=== PATIENT | male | born 1965 | race Caucasian/White ===

== ENCOUNTER 2016-04-03 08:39 | Emergency (ER) | payer OTHER ==
[2016-04-03 09:48] VITALS: BP 137/97
[2016-04-03] MEDS ORDERED: PREDNISONE 20 MG TABLET PO ONE (09:57)
[2016-04-03] MEDS ORDERED: ALBUTEROL SULFATE HFA (90 MCG/PUFF) 8 GM MDI (1 MDI/ER DISP) IH ONE (09:57)
[2016-04-03] MEDS ORDERED: AZITHROMYCIN 250 MG TABLET PO ONE (09:58)
--- NOTE | 2016-04-03 10:08 | ER Document Report ---
ED General - General Chief Complaint: Cold Symptoms Stated Complaint: SORE THROAT - HPI Patient complains to provider of: cough congestion sore throat Notes: Patient is a smoker coming in for cough congestion sore throat productive cough ongoing for the last 2 weeks no relief with [id number] symptoms. Patient did not get a flu shot this year. Patient also complains of sore throat. No recent travel no recent antibiotics. Patient otherwise in no obvious distress upon my evaluation. - Related Data Allergies/Adverse Reactions: No Known Allergies Allergy (Verified 04/03/16 09:47) Past Medical History - Social History Smoking Status: Unknown if Ever Smoked Family History: Reviewed & Not Pertinent - Past Medical History Cardiac Medical History: Denies: Hx Hypertension Endocrine Medical History: Reports: Hx Diabetes Mellitus Type 2 Renal/ Medical History: Reports: Hx Kidney Stones Past Surgical History: Reports: Hx Genitourinary Surgery - lithotripsy - Immunizations Hx Diphtheria, Pertussis, Tetanus Vaccination: Yes Review of Systems - Review of Systems Constitutional: No symptoms reported EENT: Sinus pressure, Throat pain Cardiovascular: No symptoms reported Respiratory: Cough, Short of breath Gastrointestinal: No symptoms reported Genitourinary: No symptoms reported Male Genitourinary: No symptoms reported Musculoskeletal: No symptoms reported Skin: No symptoms reported Hematologic/Lymphatic: No symptoms reported Neurological/Psychological: No symptoms reported -: Yes All other systems reviewed and negative Physical Exam - Vital signs Vitals: Temp Resp BP Pulse Ox 98.7 F 20 137/97 H 100 04/03/16 09:44 04/03/16 09:44 04/03/16 09:44 04/03/16 09:44 Interpretation: Normal - General General appearance: Appears well, Alert - HEENT Head: Normocephalic, Atraumatic Eyes: Normal Conjunctiva: Normal Cornea: Normal Extraocular movements intact: Yes Eyelashes: Normal Pupils: PERRL Ears: Normal External canal: Normal Tympanic membrane: Normal Sinus: Normal Nasal: Normal Mouth/Lips: Normal Mucous membranes: Normal Pharynx: Normal Neck: Normal - Respiratory Respiratory status: No respiratory distress Chest status: Nontender Breath sounds: Wheezing Chest palpation: Normal - Cardiovascular Rhythm: Regular Heart sounds: Normal auscultation Murmur: No - Abdominal Inspection: Normal Distension: No distension Bowel sounds: Normal Tenderness: Nontender Organomegaly: No organomegaly - Back Back: Normal, Nontender - Extremities General upper extremity: Normal inspection, Nontender, Normal color, Normal ROM , Normal temperature General lower extremity: Normal inspection, Nontender, Normal color, Normal ROM , Normal temperature, Normal weight bearing. No: Julien's sign - Neurological Neuro grossly intact: Yes Cognition: Normal Orientation: AAOx4 [place] Coma Scale Eye Opening: Spontaneous [place] Coma Scale Verbal: Oriented Kd Coma Scale Motor: Obeys Commands [place] Coma Scale Total: 15 Speech: Normal Motor strength normal: LUE, RUE, LLE, RLE Sensory: Normal - Psychological Associated symptoms: Normal affect, Normal mood - Skin Skin Temperature: Warm Skin Moisture: Dry Skin Color: Normal Course - Re-evaluation Re-evalutation: 04/03/16 15:26 Patient coming in for evaluation of off feeling unwell. More likely patient has developed a bronchitis. Patient will be given steroids bronchodilators and Z-Onesimo. Patient herself smoking patient discharged home - Vital Signs Vital signs: Temp Pulse Resp BP Pulse Ox 98.7 F 20 137/97 H 100 04/03/16 09:44 04/03/16 09:44 04/03/16 09:44 04/03/16 09:44 Discharge - Discharge Clinical Impression: Viral pharyngitis, Bronchitis, Tobacco use Condition: Good Disposition: HOME, SELF-CARE Instructions: Bronchitis With Bronchospasm (Wheezing) ([facility]), Sore Throat ([facility]) Additional Instructions: Take medication as prescribed. Please be sure that you drinking plenty of fluids to stay hydrated. Please use inhaler that we gave you here in ER 2 puffs every 4 hours for the next 5 days. Prescriptions: Azithromycin [Zithromax 250 mg Tablet] 500 mg PO DAILY #6 tab Prednisone [Deltasone 20 mg Tablet] 3 tab PO DAILY 5 Days Forms: Smoking Cessation Education, Return to Work Referrals: SUZANNE CAPONE MD [Primary Care Provider] - Follow up as needed
== END 2016-04-03 10:30 | disposition home or self-care (01) ==
LOC: ER 08:39
DX: J02.9 Acute pharyngitis, unspecified (principal); J40 Bronchitis, not specified as acute or chronic; E11.9 Type 2 diabetes mellitus without complications; Z87.442 Personal history of urinary calculi; Z72.0 Tobacco use
CPT/HCPCS: 99283; 87070; 87880; 87804; J7512; J3490

== ENCOUNTER 2016-04-12 10:49 | Emergency (ER) | payer OTHER ==
[2016-04-12 10:57] VITALS: BP 151/85
--- NOTE | 2016-04-12 11:02 | ER Document Report ---
ED Medical Screen (RME) - General Stated Complaint: SORE THROAT Time seen by provider: 10:58 Notes: patient states he was seen last week for swollen glands in his neck. Strep test and flu tests were both negative. Patient states he has been taking over- the-counter mucinex and the steroids that were prescribed for him. Still having some swelling to the right side of his neck. Also complains of tension headache and posterior neck pain. Denies fever. I have greeted and performed a rapid initial assessment of this patient. A comprehensive ED assessment and evaluation of the patient, analysis of test results and completion of the medical decision making process will be conducted by additional ED providers. - Related Data Allergies/Adverse Reactions: No Known Allergies Allergy (Verified 04/03/16 09:47) Past Medical History - Past Medical History Cardiac Medical History: Denies: Hx Hypertension Endocrine Medical History: Reports: Hx Diabetes Mellitus Type 2 Renal/ Medical History: Reports: Hx Kidney Stones Past Surgical History: Reports: Hx Genitourinary Surgery - lithotripsy - Immunizations Hx Diphtheria, Pertussis, Tetanus Vaccination: Yes Physical Exam - Vital signs Vitals: Temp Pulse Resp BP Pulse Ox 98.8 F 90 20 151/85 H 98 04/12/16 10:55 04/12/16 10:55 04/12/16 10:55 04/12/16 10:55 04/12/16 10:55 - HEENT Pharynx: Erythema Neck: Normal Course - Vital Signs Vital signs: Temp Pulse Resp BP Pulse Ox 98.8 F 90 20 151/85 H 98 04/12/16 10:55 04/12/16 10:55 04/12/16 10:55 04/12/16 10:55 04/12/16 10:55
--- NOTE | 2016-04-12 11:07 | ER Document Report ---
ED ENT - General Chief Complaint: Sore Throat Stated Complaint: SORE THROAT Notes: The patient is a 50-year-old male, current smoker, presents with 2 weeks of sore throat and enlarged lymph node on the right side of his neck. He was seen in the ER a week ago and had negative strep and flu test. He was given azithromycin and prednisone for bronchitis. He had very mild relief of his symptoms, but they're still present. He is trying Mucinex and Sudafed without much relief. He denies difficulty swallowing, neck stiffness, fevers, weight loss, night sweats, rash, nausea or vomiting. TRAVEL OUTSIDE OF THE [place] IN LAST 30 DAYS: No - Related Data Allergies/Adverse Reactions: No Known Allergies Allergy (Verified 04/12/16 10:58) Past Medical History - General Information source: Patient - Social History Smoking Status: Current Every Day Smoker Chew tobacco use (# tins/day): No Frequency of alcohol use: None Drug Abuse: None Family History: Reviewed & Not Pertinent Patient has suicidal ideation: No Patient has homicidal ideation: No - Past Medical History Cardiac Medical History: Denies: Hx Hypertension Endocrine Medical History: Reports: Hx Diabetes Mellitus Type 2 Renal/ Medical History: Reports: Hx Kidney Stones. Denies: Hx Peritoneal Dialysis Past Surgical History: Reports: Hx Genitourinary Surgery - lithotripsy - Immunizations Hx Diphtheria, Pertussis, Tetanus Vaccination: Yes Review of Systems - Review of Systems Notes: REVIEW OF SYSTEMS: CONSTITUTIONAL: -fevers, -chills EENT: -eye pain, -difficulty swallowing, -nasal congestion, +sore throat CARDIOVASCULAR:-chest pain, -syncope. RESPIRATORY: -cough, -SOB GASTROINTESTINAL: -abdominal pain, - nausea, -vomiting, -diarrhea GENITOURINARY: -dysuria, -hematuria MUSCULOSKELETAL: -back pain, -neck pain SKIN: -rash or skin lesions. HEMATOLOGIC: -easy bruising or bleeding. LYMPHATIC: +swollen, enlarged glands. NEUROLOGICAL: -altered mental status or loss of consciousness, -headache, - neurologic symptoms PSYCHIATRIC: -anxiety, -depression. ALL OTHER SYSTEMS REVIEWED AND NEGATIVE. Physical Exam - Vital signs Vitals: Temp Pulse Resp BP Pulse Ox 98.8 F 90 20 151/85 H 98 04/12/16 10:55 04/12/16 10:55 04/12/16 10:55 04/12/16 10:55 04/12/16 10:55 - Notes Notes: PHYSICAL EXAMINATION: GENERAL: Well-appearing, well-nourished and in no acute distress. HEAD: Atraumatic, normocephalic. EYES: Pupils equal round and reactive to light, extraocular movements intact, sclera anicteric, conjunctiva are normal. ENT: nares patent, oropharynx clear without exudates. Moist mucous membranes. No stridor. NECK: Tender enlarged lymph nose in right anterior neck, Normal range of motion LUNGS: Breath sounds clear to auscultation bilaterally and equal. No wheezes rales or rhonchi. HEART: Regular rate and rhythm without murmurs ABDOMEN: Soft, nontender, normoactive bowel sounds. No guarding, no rebound. No masses appreciated. EXTREMITIES: Normal range of motion, no pitting or edema. No cyanosis. NEUROLOGICAL: Cranial nerves grossly intact. Normal speech, normal gait. Normal sensory, motor, and reflex exams. PSYCH: Normal mood, normal affect. SKIN: Warm, Dry, normal turgor, no rashes or lesions noted. Course - Re-evaluation Re-evalutation: Patient has a modified Centor score of -1. No evidence of epiglottitis, RPA or BOILER WATER TESTER at this time. He already tested negative for flu and strep at his last visit. With poor dentition and enlarged lymph node, will begin clindamycin to help with the lymphadenopathy and follow up at ENT for possible biopsy because of his smoking history. Spoke to patient and about this possibility and they understand. - Vital Signs Vital signs: Temp Pulse Resp BP Pulse Ox 98.8 F 90 20 151/85 H 98 04/12/16 10:55 04/12/16 10:55 04/12/16 10:55 04/12/16 10:55 04/12/16 10:55 Discharge - Discharge Clinical Impression: Lymphadenopathy of head and neck region Pharyngitis Qualifiers: Pharyngitis/tonsillitis etiology: unspecified etiology Qualified Code(s): J02.9 - Acute pharyngitis, unspecified Condition: Stable Disposition: HOME, SELF-CARE Additional Instructions: Lymphadenopathy You have enlargement of lymph glands, called lymphadenopathy. Lymph glands filter tissue fluids. They help to fight infection. Most of the time, enlarged lymph glands are not serious. Lymph glands may react to a viral or bacterial infection by becoming swollen and painful. When the infection goes away, the glands shrink. Sometimes a lymph gland will remain enlarged for a long time after an infection. Occasionally, a lymph gland may be overwhelmed by infection and form an abscess. If an enlarged lymph gland has signs that are suspicious for tumor, the doctor will recommend a biopsy. A suspicious gland usually is NOT painful, grows very slowly, and is rock-hard to touch. See the doctor or return if there is increasing swelling and redness, high fever, difficulty breathing, or any other change for the worse. Prescriptions: Clindamycin HCl 300 mg PO Q8H #21 capsule Referrals: ENT [Provider Group] - Follow up as needed LEONCIO CARDOZO MD [ACTIVE STAFF] - Follow up as needed
== END 2016-04-12 11:45 | disposition home or self-care (01) ==
LOC: ER 10:49
DX: R59.1 Generalized enlarged lymph nodes (principal); J02.9 Acute pharyngitis, unspecified; R59.9 Enlarged lymph nodes, unspecified; F17.210 Nicotine dependence, cigarettes, uncomplicated
CPT/HCPCS: 99282

== ENCOUNTER → 2016-06-04 | Outpatient (CLI) | payer OTHER ==
[2016-06-04 09:36] LABS: ABSOLUTE BASOPHILS # (AUTO) 0.1 10^3/uL (0.0-0.2); ABSOLUTE EOSINOPHILS # (AUTO) 0.5 10^3/uL (0.0-0.6); ABSOLUTE LYMPHOCYTES (AUTO) 3.4 10^3/uL (0.5-4.7); ABSOLUTE MONOCYTES (AUTO) 0.8 10^3/uL (0.1-1.4); ABSOLUTE NEUT (AUTO) 4.5 10^3/uL (1.7-8.2); BASOPHILS % (AUTO) 0.8 % (0-2); HEMATOCRIT 46.8 % (37.9-51.0); HEMOGLOBIN 16.4 g/dL (13.5-17.0); HGB HCT DIFFERENCE 2.4; LYMPHOCYTES % (AUTO) 37.4 % (13-45); MEAN CORPUSCULAR HEMOGLOBIN 32.1 pg (27.0-33.4); MEAN CORPUSCULAR VOLUME 92 fl (80-97); MONOCYTES % (AUTO) 8.3 % (3-13); RED CELL DISTRIBUTION WIDTH 13.1 % (11.5-14.0); SEGMENTED NEUTROPHILS % (AUTO) 48.5 % (42-78); WHITE BLOOD COUNT 9.2 10^3/uL (4.0-10.5)
[2016-06-04 10:06] LABS: ALANINE AMINOTRANSFERASE 48 U/L (21-72); ALBUMIN 4.3 g/dL (3.5-5.0); ALKALINE PHOSPHATASE 131 U/L (38-126); ANION GAP 14 (5-19); ASPARTATE AMINO TRANSFERASE 41 U/L (17-59); BILIRUBIN,DIRECT 0.2 mg/dL (0.0-0.4); BILIRUBIN,TOTAL 0.8 mg/dL (0.2-1.3); BLOOD UREA NITROGEN 18 mg/dL (7-20); CALCIUM 9.5 mg/dL (8.4-10.2); CARBON DIOXIDE 28 mmol/L (22-30); CHLORIDE 97 mmol/L (98-107); CHOLESTEROL 191.46 mg/dL (0-200); CREATININE RESULT 0.79 mg/dL (0.52-1.25); Direct HDL 43 mg/dL (>40); GLUCOSE 231 mg/dL (75-110); POTASSIUM 4.1 mmol/L (3.6-5.0); SODIUM 138.7 mmol/L (137-145); TOTAL PROTEIN 7.1 g/dL (6.3-8.2); TRIGLYCERIDES 414 mg/dL (<150)
[2016-06-04 10:17] LABS: DIRECT LDL 99 mg/dL (<100)
--- NOTE | 2016-06-04 11:20 | EKG REPORT ---
SEVERITY:- BORDERLINE ECG - SINUS RHYTHM BORDERLINE INFERIOR Q WAVES : Confirmed by: Michael Peralta 04-Jun-2016 11:19:03
== END ==
LOC: OD 08:24
DX: E11.9 Type 2 diabetes mellitus without complications (principal); I10 Essential (primary) hypertension
CPT/HCPCS: 36415; 80053; 80061; 83036; 84153; 84443; 85025; 93005; 93010

== ENCOUNTER 2017-03-01 08:51 | Emergency (ER) | payer OTHER ==
--- NOTE | 2017-03-01 09:28 | ER Document Report ---
ED Medical Screen (RME) - General Chief Complaint: Skin Problem Stated Complaint: TOE PAIN Mode of Arrival: Ambulatory Information source: Patient Notes: Patient is a 51-year-old male complaining of right great toe pain. Patient states he noticed brown discharge last night and this morning when pressing on the nail he noticed pus draining from the toe. Patient has a history of diabetes and is noncompliant with medications. Patient denies pain but does have neuropathy. TRAVEL OUTSIDE OF THE [place] IN LAST 30 DAYS: No - Related Data Allergies/Adverse Reactions: No Known Allergies Allergy (Verified 04/12/16 10:58) Past Medical History - General Information source: Patient - Social History Chew tobacco use (# tins/day): No Frequency of alcohol use: None Drug Abuse: None Endocrine Medical History: Reports: Hx Diabetes Mellitus Type 2 Renal/ Medical History: Reports: Hx Kidney Stones Past Surgical History: Reports: Hx Genitourinary Surgery - lithotripsy - Immunizations Hx Diphtheria, Pertussis, Tetanus Vaccination: Yes Review of Systems - Review of Systems Musculoskeletal: See HPI, Other - right great toe pain Physical Exam - Vital signs Vitals: Temp Pulse Resp BP Pulse Ox 98.9 F 85 18 143/85 H 98 03/01/17 08:56 03/01/17 08:56 03/01/17 08:56 03/01/17 08:56 03/01/17 08:56 - Extremities Notes: Erythema to base of distal phalanx on right great toe. Inflammatory changes to the lateral aspect of the nailbed on the right great toe. Course - Vital Signs Vital signs: Temp Pulse Resp BP Pulse Ox 98.9 F 85 18 143/85 H 98 03/01/17 08:56 03/01/17 08:56 03/01/17 08:56 03/01/17 08:56 03/01/17 08:56 Scribe Documentation - Scribe Written by Alfonso:: Alfonso Madison, 03/01/2017 0944 acting as scribe for :: Dominga
--- NOTE | 2017-03-01 11:18 | ER Document Report ---
HPI - HPI Patient complains to provider of: ingrown toenail Onset: Other - several days Pain Level: 0 Context: 51 yo DM II male states that he gets ingrown toenails about every month, left or right. This one started several days ago. No pus or fever, really inflamed. Associated Symptoms: None Exacerbated by: Denies Relieved by: Denies - ROS ROS below otherwise negative: Yes Systems Reviewed and Negative: Yes All other systems reviewed and negative - DERM Skin Color: Normal Past Medical History - General Information source: Patient - Social History Smoking Status: Current Every Day Smoker Chew tobacco use (# tins/day): No Frequency of alcohol use: None Drug Abuse: None Lives with: Spouse/Significant other Family History: Reviewed & Not Pertinent Patient has suicidal ideation: No Patient has homicidal ideation: No Endocrine Medical History: Reports: Hx Diabetes Mellitus Type 2 Renal/ Medical History: Reports: Hx Kidney Stones. Denies: Hx Peritoneal Dialysis Past Surgical History: Reports: Hx Genitourinary Surgery - lithotripsy - Immunizations Hx Diphtheria, Pertussis, Tetanus Vaccination: Yes Vertical Provider Document - CONSTITUTIONAL Agree With Documented VS: Yes Exam Limitations: No Limitations General Appearance: No Apparent Distress - INFECTION CONTROL TRAVEL OUTSIDE OF THE [place] IN LAST 30 DAYS: No - HEENT HEENT: Normocephalic - NECK Neck: Supple - RESPIRATORY O2 Sat by Pulse Oximetry: 98 - MUSCULOSKELETAL/EXTREMETIES Musculoskeletal/Extremeties: MAEW, FROM, Tender - mildly inflamed right great ingrown toenail, ulanr aspect. no paronychia, felon, or lymphangitis. Course - Re-evaluation Re-evalutation: 03/01/17 11:27 right fibular side, monthly ingrown nails - Vital Signs Vital signs: Temp Pulse Resp BP Pulse Ox 98.9 F 85 18 143/85 H 98 03/01/17 08:56 03/01/17 08:56 03/01/17 08:56 03/01/17 08:56 03/01/17 08:56 Discharge - Discharge Clinical Impression: Ingrown right greater toenail Condition: Good Disposition: HOME, SELF-CARE Instructions: Cephalexin ([facility]), Epsom Salt Soaks ([facility]), Family Physicians / Practices, Ingrown Nail ([facility]) Additional Instructions: soak toe in warm epsom salts elevate antibiotic see technician semiconductor development on friday to er any spreading of the red tissue, fever, pain Prescriptions: Cephalexin Monohydrate [Keflex 500 mg Capsule] 500 mg PO QID #28 capsule Forms: Return to Work Referrals: JENNIFER ROSALES DPM [ACTIVE STAFF] - 03/03/17
[2017-03-01 11:48] VITALS: BP 130/67
== END 2017-03-01 11:35 | disposition home or self-care (01) ==
LOC: ER 08:51
DX: L60.0 Ingrowing nail (principal); F17.200 Nicotine dependence, unspecified, uncomplicated
CPT/HCPCS: 99283

== ENCOUNTER 2018-02-04 12:18 | Emergency (ER) | payer OTHER ==
[2018-02-04] MEDS ORDERED: LIDOCAINE 1% INJ-PF (10 MG/ML) 30 ML SDV INJ ONE (13:24)
[2018-02-04] MEDS ORDERED: CEFTRIAXONE INJ 500 MG VIAL IM ONE (13:24)
--- NOTE | 2018-02-04 13:27 | ER Document Report ---
ED General - General Chief Complaint: Leg Pain Stated Complaint: LEFT LEG PAIN Time Seen by Provider: 02/04/18 13:15 Notes: 52-year-old male who is noncompliant type II diabetic who does not use insulin presents the emergency department complaining of a scratch from a cat to the medial distal aspect of his left leg about a week and a half ago. Patient complains of increasing erythema and darkening of the erythema. Patient states that he was started on Bactrim and then he went on vacation and it started to get better however on Friday he went back to work and was on his feet for at least 3 hours and the redness started to darken again. Denies any fevers, denies any vomiting. States that the pain has increased and he has some pain when he starts to walk but then it goes away after walking for a minute or 2. Denies fever, denies discharge. TRAVEL OUTSIDE OF THE [place] IN LAST 30 DAYS: No - Related Data Allergies/Adverse Reactions: No Known Allergies Allergy (Verified 02/04/18 12:18) Past Medical History - General Information source: Patient - Social History Smoking Status: Current Every Day Smoker Chew tobacco use (# tins/day): No Frequency of alcohol use: Occasional Drug Abuse: None Family History: Reviewed & Not Pertinent Patient has suicidal ideation: No Patient has homicidal ideation: No - Past Medical History Cardiac Medical History: Denies: Hx Hypertension Endocrine Medical History: Reports: Hx Diabetes Mellitus Type 2 Renal/ Medical History: Reports: Hx Kidney Stones. Denies: Hx Peritoneal Dialysis Past Surgical History: Reports: Hx Genitourinary Surgery - lithotripsy - Immunizations Hx Diphtheria, Pertussis, Tetanus Vaccination: Yes Review of Systems - Review of Systems Constitutional: No symptoms reported. denies: Fever Cardiovascular: No symptoms reported Respiratory: No symptoms reported Musculoskeletal: See HPI Skin: See HPI -: Yes All other systems reviewed and negative Physical Exam - Vital signs Vitals: Temp Pulse Resp BP Pulse Ox 99.4 F 89 15 149/77 H 97 02/04/18 12:26 02/04/18 12:26 02/04/18 12:26 02/04/18 12:26 02/04/18 12:26 Interpretation: Hypertensive - Notes Notes: GENERAL: Alert, interacts well. No acute distress. HEAD: Normocephalic, atraumatic EYES: Pupils equal, round and reactive to light, extraocular movements intact. ENT: Oral mucosa moist, tongue midline. NECK: Full range of motion, supple, trachea midline. LUNGS: no respiratory distress. ABDOMEN: nondistended EXTREMITIES: Moves all 4 extremities spontaneously, no edema, radial and dorsalis pedis pulses 2/4 bilaterally. No cyanosis. NEUROLOGICAL: Alert and oriented x3, normal speech PSYCH: Normal mood, normal affect. SKIN: Lesion with crusting is noted to the medial aspect of the distal right lower extremity, erythema extends from just above the calcaneus approximately 15 cm and it is approximately 12 cm in diameter in the transverse measurement, there is an area of crusting in the center without any drainage. There is also a second abrasion noted just over the calcaneus. This is tender palpation, not fluctuant, no evidence of an abscess. There is no lymphangitic streaking. Course - Re-evaluation Re-evalutation: 02/04/18 16:00 CBC shows slight leukocytosis of 10.9, BMP shows elevated glucose at 227 consistent with history of a poorly controlled diabetic, no evidence of diabetic ketoacidosis, no anion gap. Patient was started on Keflex already was already started on antibiotics by his primary care physician, we will broaden his coverage that would include Bactrim and Keflex. Patient will be discharged to home with strict instructions to elevate his leg, use compression and stay off of his leg for the next 3 days. - Vital Signs Vital signs: Temp Pulse Resp BP Pulse Ox 99.4 F 89 15 149/77 H 97 02/04/18 12:26 02/04/18 12:26 02/04/18 12:26 02/04/18 12:26 02/04/18 12:26 - Laboratory Result Diagrams: 02/04/18 14:20 02/04/18 14:20 Laboratory results interpreted by me: 02/04/18 02/04/18 14:20 14:20 WBC 10.9 H Hgb 17.1 H Sodium 136.2 L Carbon Dioxide 21 L BUN 23 H Glucose 227 H Discharge - Discharge Clinical Impression: Cellulitis of left leg without foot Condition: Stable Disposition: HOME, SELF-CARE Additional Instructions: Cellulitis You have an infection of your skin and underlying soft tissues called cellulitis. This is due to bacteria, which can enter through any break in the skin, or even through an irritated hair follicle. Untreated, cellulitis will usually worsen. Antibiotics are required. Usually, warm packs or warm soaks, and elevation of the infected area are recommended. You should start getting better within 24 to 36 hours. Most infections respond quickly to the right medication. Follow-up care is important, however, to check for abscess (boil) formation, unsuspected foreign body, or resistant infection. If you develop fever, chills, or if the area of infection is becoming rapidly more swollen or painful, call the doctor at once. Keep your leg elevated, consider wrapping an Dennis wrap to provide some compression, use Epsom salt soaks 3 times a day and take the antibiotics as directed until it is gone. If you develop a fever, increasing redness, streaking up your leg or any new or concerning symptoms please return to the emergency department. Prescriptions: Cephalexin Monohydrate [Keflex 500 mg Capsule] 500 mg PO Q6H 7 Days capsule Forms: Return to Work Referrals: SUZANNE CAPONE MD [Primary Care Provider] - Follow up in 3-5 days
[2018-02-04 14:52] LABS: ABSOLUTE BASOPHILS # (AUTO) 0.1 10^3/uL (0.0-0.2); ABSOLUTE EOSINOPHILS # (AUTO) 0.2 10^3/uL (0.0-0.6); ABSOLUTE LYMPHOCYTES (AUTO) 2.1 10^3/uL (0.5-4.7); ABSOLUTE MONOCYTES (AUTO) 0.7 10^3/uL (0.1-1.4); ABSOLUTE NEUT (AUTO) 7.9 10^3/uL (1.7-8.2); BASOPHILS % (AUTO) 0.6 % (0-2); EOSINOPHILS % (AUTO) 1.5 % (0-6); HEMATOCRIT 48.5 % (37.9-51.0); HEMOGLOBIN 17.1 g/dL (13.5-17.0); LYMPHOCYTES % (AUTO) 19.6 % (13-45); MEAN CORPUSCULAR HEMOGLOBIN 31.8 pg (27.0-33.4); MEAN CORPUSCULAR HGB CONC 35.4 g/dL (32.0-36.0); MEAN CORPUSCULAR VOLUME 90 fl (80-97); RED CELL DISTRIBUTION WIDTH 13.1 % (11.5-14.0); SEGMENTED NEUTROPHILS % (AUTO) 72.3 % (42-78); TOTAL CELLS COUNTED % (AUTO) 100 %; WHITE BLOOD COUNT 10.9 10^3/uL (4.0-10.5)
[2018-02-04 15:24] LABS: PLATELET COUNT 282 10^3/uL (150-450)
[2018-02-04 15:26] LABS: ANION GAP 14 (5-19); BLOOD UREA NITROGEN 23 mg/dL (7-20); CALCIUM 9.8 mg/dL (8.4-10.2); CARBON DIOXIDE 21 mmol/L (22-30); CHLORIDE 101 mmol/L (98-107); GLUCOSE 227 mg/dL (75-110); SODIUM 136.2 mmol/L (137-145)
[2018-02-04 17:26] VITALS: BP 133/76
== END 2018-02-04 16:40 | disposition home or self-care (01) ==
LOC: ER 12:18
DX: L03.116 Cellulitis of left lower limb (principal); F17.200 Nicotine dependence, unspecified, uncomplicated; E11.9 Type 2 diabetes mellitus without complications; Z91.14 Patient's other noncompliance with medication regimen
CPT/HCPCS: 99284; 96372; 36415; 85025; 80048; J3490; J0696

== ENCOUNTER → 2018-03-04 | Outpatient (CLI) | payer OTHER ==
[2018-03-04 12:31] LABS: ABSOLUTE BASOPHILS # (AUTO) 0.1 10^3/uL (0.0-0.2); ABSOLUTE EOSINOPHILS # (AUTO) 0.3 10^3/uL (0.0-0.6); ABSOLUTE LYMPHOCYTES (AUTO) 2.4 10^3/uL (0.5-4.7); ABSOLUTE MONOCYTES (AUTO) 0.7 10^3/uL (0.1-1.4); ABSOLUTE NEUT (AUTO) 4.4 10^3/uL (1.7-8.2); BASOPHILS % (AUTO) 0.7 % (0-2); EOSINOPHILS % (AUTO) 4.4 % (0-6); HEMATOCRIT 44.5 % (37.9-51.0); HEMOGLOBIN 15.7 g/dL (13.5-17.0); LYMPHOCYTES % (AUTO) 30.3 % (13-45); MEAN CORPUSCULAR HGB CONC 35.3 g/dL (32.0-36.0); MEAN CORPUSCULAR VOLUME 91 fl (80-97); MONOCYTES % (AUTO) 8.8 % (3-13); PLATELET COUNT 272 10^3/uL (150-450); RED CELL DISTRIBUTION WIDTH 13.4 % (11.5-14.0); SEGMENTED NEUTROPHILS % (AUTO) 55.8 % (42-78); TOTAL CELLS COUNTED % (AUTO) 100 %; WHITE BLOOD COUNT 7.9 10^3/uL (4.0-10.5)
--- NOTE | 2018-03-04 12:43 | RADIOLOGY REPORT (SQ) ---
EXAM DESCRIPTION: TIBIA FIBULA LEFT COMPLETED DATE/TIME: 03/04/2018 11:46 am REASON FOR STUDY: NON-PRESSURE CHRONIC ULCER OF LEFT CALF W FAT LAYER EXPOSED L97.222 NON-PRESSURE CHRONIC ULCER OF LEFT CALF W FAT LAYER E11.622 TYPE 2 DIABETES MELLITUS WITH OTHER SKIN ULCER SKIN INJURY, ATTACKED BY CAT COMPARISON: None. NUMBER OF VIEWS: Two views. TECHNIQUE: Two radiographic images acquired of the left tibia and fibula to include the knee and ank le in at least one projection. LIMITATIONS: None. FINDINGS: MINERALIZATION: Normal. BONES: No acute fracture or dislocation. No worrisome bone lesions. SOFT TISSUES: SMALL ULCER WITH RADIOPAQUE OINTMENT IN THE DISTAL LEFT LOWER LEG MEDIALLY. NO RETAINE D RADIOPAQUE FOREIGN BODY. NO SOFT TISSUE GAS. NO UNDERLYING ACUTE BONY FINDINGS. OTHER: No other significant finding. IMPRESSION: SMALL SOFT TISSUE ULCER LEFT LOWER LEG MEDIALLY, WITHOUT UNDERLYING BONY CHANGES OR KOLE INED RADIOPAQUE FOREIGN BODY. NO SOFT TISSUE GAS TECHNICAL DOCUMENTATION: JOB ID: [id number] [employer]- All Rights Reserved Reading location - IP/workstation name: [facility]
[2018-03-04 12:54] LABS: ALANINE AMINOTRANSFERASE 23 U/L (21-72); ALBUMIN 4.8 g/dL (3.5-5.0); ALKALINE PHOSPHATASE 107 U/L (38-126); ANION GAP 11 (5-19); ASPARTATE AMINO TRANSFERASE 27 U/L (17-59); BILIRUBIN,DIRECT 0.3 mg/dL (0.0-0.4); BILIRUBIN,TOTAL 0.8 mg/dL (0.2-1.3); BLOOD UREA NITROGEN 18 mg/dL (7-20); C-REACTIVE PROTEIN 6.6 mg/L (<10.0); CALCIUM 9.8 mg/dL (8.4-10.2); CARBON DIOXIDE 28 mmol/L (22-30); CHLORIDE 102 mmol/L (98-107); GLUCOSE 148 mg/dL (75-110); POTASSIUM 4.4 mmol/L (3.6-5.0); SODIUM 141.2 mmol/L (137-145); TOTAL PROTEIN 7.5 g/dL (6.3-8.2)
[2018-03-04 13:24] LABS: ERYTHROCYTE SEDIMENTATION RATE 16 mm/hr (0-20)
== END ==
LOC: WC 10:53
PROVIDERS: ATTEND Nurse Practitioner
DX: E11.622 Type 2 diabetes mellitus with other skin ulcer (principal); L97.222 Non-pressure chronic ulcer of left calf with fat layer exposed
CPT/HCPCS: 36415; 80053; 83036; 85025; 85652; 86140